=== PATIENT | male | born 1940 | race Caucasian/White ===

== ENCOUNTER 2017-07-13 08:49 | Inpatient (IN) | payer MEDICARE ==
[~2017-07-13] VITALS: Ht 172.7 cm; Wt 83.8 kg
[~2017-07-13 08:49] MED LIST: ASPI-1146 PO; DICY20TA11 PO; DOXA4TAB3 PO; FOLI-74 PO; FOLI0.8T PO; GLIP5TAB11 PO; LISI2.5T2 PO; LORA-997 PO; METF10004 PO; NAPH15DR8 OU; OMEGA; PSYL1CAP2 PO; SERT50TA12 PO; SIMV10TA6 PO; TRIA10.8 NS; [UNRECOGNIZED DRUG - CODE] PO
[2017-07-13 09:48] LABS: BASOPHILS % (AUTO) 0.5 % (0.0-5.0); EOSINOPHILS % (AUTO) 1.7 % (0.0-8.0); HEMATOCRIT 40.2 % (42-54); MEAN CORPUSCULAR HEMOGLOBIN 33.4 pg (27.0-33.0); MEAN CORPUSCULAR VOLUME 95.5 fL (79-99); MONOCYTES % (AUTO) 7.5 % (3.0-13.0); NEUTROPHILS % (AUTO) 67.3 % (40.0-77.0); PLATELET COUNT (AUTO) 132 K/uL (130-400); RED BLOOD CELL COUNT(AUTO) 4.21 MIL/uL (4.50-6.20); RED CELL DISTRIBUTION WIDTH 12.6 % (11.0-15.5); WHITE BLOOD COUNT (AUTO) 5.7 K/uL (4.8-10.8)
[2017-07-13 09:49] LABS: APPEARANCE,URINE Clear (CLEAR); BILIRUBIN,URINE Negative (NEGATIVE); COLOR,URINE Yellow (YELLOW); GLUCOSE, URINE (UA) >=1000 mg/dL (NEGATIVE); KETONES,URINE Negative (NEGATIVE); LEUKOCYTE ESTERASE ,URINE Negative (NEGATIVE); NITRATE,URINE Negative (NEGATIVE); OCCULT BLOOD,URINE Negative (NEGATIVE); PROTEIN,URINE Negative (NEGATIVE)
[2017-07-13 09:56] LABS: CREATININE 1.3 mg/dL (0.5-1.5); POTASSIUM 4.7 mmol/L (3.5-5.1)
[2017-07-13 09:59] LABS: INR 1.26 (0.85-1.15); PARTIAL THROMBOPLASTIN TIME 36.4 SEC (26.3-35.5); PROTHROMBIN TIME 13.2 SEC (9.6-11.6)
[2017-07-13 10:14] LABS: BACTERIA,URINE None Seen /HPF (None Seen); RBC,URINE None Seen /HPF (0-1); SQUAMOUS EPITHELIAL CELL,UR 0-2 /HPF (0-2); WBC,URINE None Seen /HPF (0-1)
[2017-07-13] MEDS ORDERED: DEXTROSE 50%-WATER 50 ML DISP.SYRIN IV PRN (10:15)
[2017-07-13] MEDS ORDERED: GLUCAGON 1MG KIT 1 MG ML IM PRN (10:15)
[2017-07-13] MEDS ORDERED: SODIUM CHLORIDE 0.9% 10 ML VIAL IVP PRN (10:15)
[2017-07-13] MEDS ORDERED: PINDOLOL 5 MG TAB PO SCH (11:00)
[2017-07-13] MEDS ORDERED: RIVA20TA PO (16:47)
[2017-07-13] MEDS ORDERED: PIND10TA2 PO (16:50)
[2017-07-13] MEDS ORDERED: METFORMIN HCL 500 MG TABLET PO SCH (17:00)
[2017-07-13] MEDS ORDERED: GLIPIZIDE 5 MG TABLET PO SCH (17:00)
[2017-07-13] MEDS ORDERED: DIPHENHYDRAMINE HCL 25 MG CAPSULE ONE (21:16)
[2017-07-14] MEDS: VESICARE 5 MG PO SCH (09:00)
[2017-07-14] MEDS: PINDOLOL 5 MG TAB PO SCH ×2 (09:00→21:00)
[2017-07-14] MEDS: SERTRALINE HCL 50 MG TABLET PO SCH (09:00)
[2017-07-14] MEDS: RIVAROXABAN 20 MG TABLET PO SCH (09:00)
[2017-07-14] MEDS ORDERED: SERTRALINE HCL 50 MG TABLET ONE (09:08)
[2017-07-14] MEDS ORDERED: DICYCLOMINE HCL 20 MG TAB ONE (20:22)
[2017-07-14] MEDS ORDERED: ATORVASTATIN CALCIUM 10 MG TABLET PO SCH (20:30)
[2017-07-14] MEDS ORDERED: PSYLLIUM SEED 1 EACH PACKET PO SCH (20:30)
[2017-07-14] MEDS ORDERED: DICYCLOMINE HCL 20 MG TAB PO SCH (20:30)
[2017-07-14] MEDS ORDERED: DIPHENHYDRAMINE HCL 25 MG CAPSULE ONE (20:41)
[2017-07-14] MEDS ORDERED: INSULIN HUMULIN R 100 UNIT/ML 3ML ONE (20:43)
[2017-07-14] MEDS: INSULIN R PO SSI SQ SCH (21:00)
[2017-07-14] MEDS: DOXAZOSIN MESYLATE 2 MG TABLET PO SCH (21:00)
[2017-07-14] MEDS: DIPHENHYDRAMINE HCL 25 MG CAPSULE PO SCH (21:00)
[2017-07-14 23:28] VITALS: BP 147/81
[2017-07-15] VITALS (10 sets, daily range): BP systolic 94–185; BP diastolic 47–84
[2017-07-15] MEDS: INSULIN R PO SSI SQ SCH ×4 (06:14→21:00)
[2017-07-15] MEDS: DIPHENHYDRAMINE HCL 25 MG CAPSULE PO SCH ×2 (09:00→20:31)
[2017-07-15] MEDS: VESICARE 5 MG PO SCH (09:00)
[2017-07-15] MEDS: SERTRALINE HCL 50 MG TABLET PO SCH (09:36)
[2017-07-15] MEDS: DOXAZOSIN MESYLATE 2 MG TABLET PO SCH ×2 (09:36→20:30)
[2017-07-15] MEDS: RIVAROXABAN 20 MG TABLET PO SCH (09:37)
[2017-07-15] MEDS: PINDOLOL 5 MG TAB PO SCH ×2 (09:37→20:31)
[2017-07-16] VITALS (13 sets, daily range): BP systolic 96–157; BP diastolic 54–91
[2017-07-16] MEDS: INSULIN R PO SSI SQ SCH ×4 (06:25→20:38)
[2017-07-16] MEDS: DIPHENHYDRAMINE HCL 25 MG CAPSULE PO SCH ×2 (09:00→20:38)
[2017-07-16] MEDS: VESICARE 5 MG PO SCH (09:00)
[2017-07-16] MEDS: RIVAROXABAN 20 MG TABLET PO SCH (10:59)
[2017-07-16] MEDS: SERTRALINE HCL 50 MG TABLET PO SCH (11:00)
[2017-07-16] MEDS: DOXAZOSIN MESYLATE 2 MG TABLET PO SCH ×2 (11:00→20:35)
[2017-07-16] MEDS ORDERED: PINDOLOL 5 MG TAB ONE (16:21)
[2017-07-16] MEDS: PINDOLOL 5 MG TAB PO SCH (16:26)
[2017-07-17] VITALS (8 sets, daily range): BP systolic 85–154; BP diastolic 53–99
[2017-07-17] MEDS: INSULIN R PO SSI SQ SCH ×3 (05:39→20:26)
[2017-07-17] MEDS: DOXAZOSIN MESYLATE 2 MG TABLET PO SCH ×2 (08:29→20:26)
[2017-07-17] MEDS: RIVAROXABAN 20 MG TABLET PO SCH (08:29)
[2017-07-17] MEDS: SERTRALINE HCL 50 MG TABLET PO SCH (08:29)
[2017-07-17] MEDS: PINDOLOL 5 MG TAB PO SCH ×2 (08:30→20:27)
[2017-07-17] MEDS: VESICARE 5 MG PO SCH (09:00)
[2017-07-17] MEDS: DIPHENHYDRAMINE HCL 25 MG CAPSULE PO SCH ×2 (09:00→20:30)
[2017-07-18] VITALS (10 sets, daily range): BP systolic 99–176; BP diastolic 60–91
[2017-07-18] MEDS: INSULIN R PO SSI SQ SCH (06:04)
[2017-07-18] MEDS: VESICARE 5 MG PO SCH (09:00)
[2017-07-18] MEDS: DIPHENHYDRAMINE HCL 25 MG CAPSULE PO SCH (09:00)
[2017-07-18] MEDS: RIVAROXABAN 20 MG TABLET PO SCH (09:16)
[2017-07-18] MEDS: SERTRALINE HCL 50 MG TABLET PO SCH (09:16)
[2017-07-18] MEDS: DOXAZOSIN MESYLATE 2 MG TABLET PO SCH (09:16)
[2017-07-18] MEDS: PINDOLOL 5 MG TAB PO SCH ×2 (09:17→20:19)
== END 2017-07-18 20:43 | disposition home or self-care (01) | DRG 310 ==
LOC: EDH 08:49 → EDHIP 08:50 → 2AH 07-14 22:18
PROVIDERS: ADMIT Internal Medicine Nephrology; ATTEND Internal Medicine Nephrology
PROC: 5A09357 Assistance with Respiratory Ventilation, Less than 24 Consecutive Hours, Continuous Positive Airway Pressure (ICD-10-PCS; principal; 2017-07-16)
DX: I48.0 Paroxysmal atrial fibrillation (principal); E11.9 Type 2 diabetes mellitus without complications; D46.9 Myelodysplastic syndrome, unspecified; K21.9 Gastro-esophageal reflux disease without esophagitis; E78.5 Hyperlipidemia, unspecified; I95.1 Orthostatic hypotension; R00.1 Bradycardia, unspecified; G47.33 Obstructive sleep apnea (adult) (pediatric); I10 Essential (primary) hypertension; K58.9 Irritable bowel syndrome, unspecified; Z79.01 Long term (current) use of anticoagulants; Z86.73 Personal history of transient ischemic attack (TIA), and cerebral infarction without residual deficits; Z85.46 Personal history of malignant neoplasm of prostate; Z82.49 Family history of ischemic heart disease and other diseases of the circulatory system; Z82.3 Family history of stroke; Z83.3 Family history of diabetes mellitus
CPT/HCPCS: 36415; 71046; 80048; 81001; 82948; 85025; 85610; 85730; 94660; J1815; Q0163

== ENCOUNTER → 2018-11-08 | Outpatient (CLI) | payer MEDICARE ==
[~2018-11-08] VITALS: Ht 175.3 cm; Wt 81.2 kg
[~2018-11-08] MED LIST changes: -ASPI-1146 PO; -LISI2.5T2 PO; -LORA-997 PO; +METF-446 PO; -METF10004 PO; -NAPH15DR8 OU; -OMEGA; +REGADENOSON 0.4 MG/5 ML PF SYG IVP SCH; +RIVA20TA PO; -TRIA10.8 NS
== END | disposition home or self-care (01) ==
LOC: SHCH 08:25
PROVIDERS: ATTEND Internal Medicine Cardiovascular Disease
DX: I95.1 Orthostatic hypotension (principal); R07.89 Other chest pain
CPT/HCPCS: 78452; 93017; 96374; A9500 ×2; J2785

== ENCOUNTER 2021-06-17 01:39 | Emergency (ER) | payer MEDICARE ==
[~2021-06-17] VITALS: Ht 175.3 cm; Wt 72.6 kg
[~2021-06-17 01:39] MED LIST changes: +CEPH500B PO; -DICY20TA11 PO; +DICY20TA3 PO; -FOLI0.8T PO; +FOLI0.8T3 PO; -REGADENOSON 0.4 MG/5 ML PF SYG IVP SCH; +SERT-439 PO; -SERT50TA12 PO; -SIMV10TA6 PO; +SIMV10TA97 PO; +TRAM50TA4 PO
[2021-06-17 01:41] VITALS: BP 159/63
[2021-06-18] MEDS ORDERED: CEPH500B PO (18:58)
== END 2021-06-17 05:15 | disposition left against medical advice (07) ==
LOC: EDH 01:39
DX: R31.9 Hematuria, unspecified (principal); Z53.21 Procedure and treatment not carried out due to patient leaving prior to being seen by health care provider

== ENCOUNTER 2021-06-18 16:11 | Emergency (ER) | payer MEDICARE ==
[~2021-06-18] VITALS: Ht 175.3 cm; Wt 72.6 kg
[2021-06-18 17:17] LABS: APPEARANCE,URINE TURBID (CLEAR); COLOR,URINE RED (YELLOW)
[2021-06-18 17:18] LABS: LEUKOCYTE ESTERASE ,URINE SMALL (NEGATIVE); NITRATE,URINE POSITIVE (NEGATIVE)
[2021-06-18 17:19] LABS: PROTEIN,URINE >=300 mg/dL (NEGATIVE); UROBILINOGEN,URINE 0.2 mg/dL (0.2-1.0)
[2021-06-18 17:20] LABS: GLUCOSE, URINE (UA) NEGATIVE (NEGATIVE); KETONES,URINE 15 mg/dL (NEGATIVE); OCCULT BLOOD,URINE LARGE (NEGATIVE)
[2021-06-18 17:21] LABS: BILIRUBIN,URINE SMALL (NEGATIVE)
[2021-06-18 17:44] LABS: RBC,URINE TNTC /HPF (0-1)
[2021-06-18 17:46] LABS: BACTERIA,URINE Rare /HPF (None Seen); SQUAMOUS EPITHELIAL CELL,UR None Seen /HPF (0-2)
[2021-06-18 18:22] LABS: BASOPHILS % (AUTO) 0.6 % (0.0-5.0); EOSINOPHILS % (AUTO) 2.6 % (0.0-8.0); HEMATOCRIT 38.4 % (42-54); LYMPHOCYTES % (AUTO) 21.8 % (21.0-51.0); MEAN CORPUSCULAR HEMOGLOBIN 32.3 pg (27.0-33.0); MEAN CORPUSCULAR HGB CONC 33.1 g/dL (32.0-36.0); MEAN CORPUSCULAR VOLUME 97.7 fL (79-99); MONOCYTES % (AUTO) 10.3 % (3.0-13.0); NEUTROPHILS % (AUTO) 64.3 % (40.0-77.0); PLATELET COUNT (AUTO) 133 K/uL (130-400); RED BLOOD CELL COUNT(AUTO) 3.93 MIL/uL (4.50-6.20); RED CELL DISTRIBUTION WIDTH 12.5 % (11.0-15.5); WHITE BLOOD COUNT (AUTO) 5.1 K/uL (4.8-10.8)
[2021-06-18 18:30] LABS: CREATININE 1.1 mg/dL (0.5-1.5); POTASSIUM 4.4 mmol/L (3.5-5.1)
[2021-06-18] MEDS ORDERED: 0.9% NACL 500ML IV.SOLN 500 ML IV SCH (18:30)
[2021-06-18 18:39] LABS: ALBUMIN 3.8 g/dL (3.5-5.0); BILIRUBIN,TOTAL 0.4 mg/dL (0.2-1.0); TOTAL PROTEIN, SERUM 6.6 g/dL (6.0-8.3)
[2021-06-18] MEDS ORDERED: CEPH500B PO (18:58)
[2021-06-18] MEDS ORDERED: CEFTRIAXONE 1G VIAL IV SCH (19:00)
[2021-06-18 19:24] VITALS: BP 117/63
== END 2021-06-18 19:37 | disposition home or self-care (01) ==
LOC: EDH 16:11
DX: N30.91 Cystitis, unspecified with hematuria (principal); E11.9 Type 2 diabetes mellitus without complications; I10 Essential (primary) hypertension; Z79.84 Long term (current) use of oral hypoglycemic drugs; Z85.46 Personal history of malignant neoplasm of prostate; Z90.49 Acquired absence of other specified parts of digestive tract
CPT/HCPCS: 36415; 80053; 81001; 85025; 87088; 96374; 99284; J0696; J7040

== ENCOUNTER 2021-06-27 11:10 | Emergency (ER) | payer MEDICARE ==
[~2021-06-27] VITALS: Ht 175.3 cm; Wt 72.6 kg
[2021-06-27 11:35] LABS: APPEARANCE,URINE TURBID (CLEAR); BILIRUBIN,URINE LARGE (NEGATIVE); COLOR,URINE RED (YELLOW); GLUCOSE, URINE (UA) 100 mg/dL (NEGATIVE); KETONES,URINE 15 mg/dL (NEGATIVE); LEUKOCYTE ESTERASE ,URINE MODERATE (NEGATIVE); NITRATE,URINE POSITIVE (NEGATIVE); OCCULT BLOOD,URINE LARGE (NEGATIVE); PH,URINE 6.5 (5.0-8.0); PROTEIN,URINE >=300 mg/dL (NEGATIVE)
[2021-06-27 11:36] VITALS: BP 139/62
[2021-06-27 11:50] LABS: BASOPHILS % (AUTO) 0.6 % (0.0-5.0); EOSINOPHILS % (AUTO) 2.7 % (0.0-8.0); HEMATOCRIT 35.6 % (42-54); LYMPHOCYTES % (AUTO) 24.4 % (21.0-51.0); MEAN CORPUSCULAR HEMOGLOBIN 32.5 pg (27.0-33.0); MEAN CORPUSCULAR HGB CONC 33.7 g/dL (32.0-36.0); MEAN CORPUSCULAR VOLUME 96.5 fL (79-99); MONOCYTES % (AUTO) 10.7 % (3.0-13.0); NEUTROPHILS % (AUTO) 61.4 % (40.0-77.0); PLATELET COUNT (AUTO) 135 K/uL (130-400); RED BLOOD CELL COUNT(AUTO) 3.69 MIL/uL (4.50-6.20); RED CELL DISTRIBUTION WIDTH 12.9 % (11.0-15.5); WHITE BLOOD COUNT (AUTO) 4.9 K/uL (4.8-10.8)
[2021-06-27 11:57] LABS: POTASSIUM 4.7 mmol/L (3.5-5.1)
[2021-06-27 12:02] LABS: ALBUMIN 3.8 g/dL (3.5-5.0); BILIRUBIN,TOTAL 0.4 mg/dL (0.2-1.0); TOTAL PROTEIN, SERUM 6.6 g/dL (6.0-8.3)
[2021-06-27 12:19] LABS: RBC,URINE TNTC /HPF (0-1)
[2021-06-27 12:20] LABS: BACTERIA,URINE Moderate /HPF (None Seen); SQUAMOUS EPITHELIAL CELL,UR 0-2 /HPF (0-2)
[2021-06-27] MEDS ORDERED: IOHEXOL-350 50ML VIAL IV ONE (12:43)
[2021-06-27] MEDS ORDERED: CEPH500B PO (15:06)
== END 2021-06-27 15:25 | disposition home or self-care (01) ==
LOC: EDH 11:10
DX: N30.01 Acute cystitis with hematuria (principal); N32.89 Other specified disorders of bladder; E11.9 Type 2 diabetes mellitus without complications; I10 Essential (primary) hypertension; J44.9 Chronic obstructive pulmonary disease, unspecified; Z79.84 Long term (current) use of oral hypoglycemic drugs; Z85.46 Personal history of malignant neoplasm of prostate; Z90.49 Acquired absence of other specified parts of digestive tract
CPT/HCPCS: 36415; 74176; 74177; 80053; 81001; 85025; 87088; 99285; Q9967

== ENCOUNTER → 2021-09-03 | Outpatient (CLI) | payer MEDICARE ==
[2021-09-03 12:32] LABS: BASOPHILS % (AUTO) 0.5 % (0.0-5.0); EOSINOPHILS % (AUTO) 2.2 % (0.0-8.0); HEMATOCRIT 41.1 % (42-54); LYMPHOCYTES % (AUTO) 18.7 % (21.0-51.0); MEAN CORPUSCULAR HEMOGLOBIN 32.5 pg (27.0-33.0); MEAN CORPUSCULAR HGB CONC 33.1 g/dL (32.0-36.0); MEAN CORPUSCULAR VOLUME 98.1 fL (79-99); MONOCYTES % (AUTO) 8.5 % (3.0-13.0); NEUTROPHILS % (AUTO) 69.9 % (40.0-77.0); PLATELET COUNT (AUTO) 128 K/uL (130-400); RED BLOOD CELL COUNT(AUTO) 4.19 MIL/uL (4.50-6.20); RED CELL DISTRIBUTION WIDTH 12.9 % (11.0-15.5); WHITE BLOOD COUNT (AUTO) 4.1 K/uL (4.8-10.8)
== END | disposition home or self-care (01) ==
LOC: LAB 08:08
PROVIDERS: ATTEND Internal Medicine Cardiovascular Disease
DX: I48.0 Paroxysmal atrial fibrillation (principal)
CPT/HCPCS: 36415; 85025

== ENCOUNTER → 2022-01-15 | Outpatient (CLI) | payer MEDICARE ==
[2022-01-15 12:32] LABS: BASOPHILS % (AUTO) 0.5 % (0.0-5.0); EOSINOPHILS % (AUTO) 2.1 % (0.0-8.0); HEMATOCRIT 42.5 % (42-54); LYMPHOCYTES % (AUTO) 18.4 % (21.0-51.0); MEAN CORPUSCULAR HEMOGLOBIN 32.2 pg (27.0-33.0); MEAN CORPUSCULAR HGB CONC 33.4 g/dL (32.0-36.0); MEAN CORPUSCULAR VOLUME 96.4 fL (79-99); MONOCYTES % (AUTO) 8.4 % (3.0-13.0); NEUTROPHILS % (AUTO) 70.6 % (40.0-77.0); PLATELET COUNT (AUTO) 126 K/uL (130-400); RED BLOOD CELL COUNT(AUTO) 4.41 MIL/uL (4.50-6.20); WHITE BLOOD COUNT (AUTO) 4.3 K/uL (4.8-10.8)
[2022-01-15 12:46] LABS: CREATININE 1.1 mg/dL (0.5-1.5); POTASSIUM 4.6 mmol/L (3.5-5.1); TOTAL PROTEIN, SERUM 6.8 g/dL (6.0-8.3)
== END | disposition home or self-care (01) ==
LOC: LAB 08:12
PROVIDERS: ATTEND Internal Medicine Cardiovascular Disease
DX: I48.0 Paroxysmal atrial fibrillation (principal); I10 Essential (primary) hypertension
CPT/HCPCS: 36415; 80053; 80061; 85025

== ENCOUNTER → 2022-06-02 | Outpatient (CLI) | payer MEDICARE ==
[2022-06-02 12:41] LABS: BASOPHILS % (AUTO) 0.5 % (0.0-5.0); EOSINOPHILS % (AUTO) 3.6 % (0.0-8.0); HEMATOCRIT 41.8 % (42-54); LYMPHOCYTES % (AUTO) 20.2 % (21.0-51.0); MEAN CORPUSCULAR HEMOGLOBIN 32.4 pg (27.0-33.0); MEAN CORPUSCULAR VOLUME 98.1 fL (79-99); MONOCYTES % (AUTO) 8.3 % (3.0-13.0); NEUTROPHILS % (AUTO) 67.4 % (40.0-77.0); PLATELET COUNT (AUTO) 125 K/uL (130-400); RED BLOOD CELL COUNT(AUTO) 4.26 MIL/uL (4.50-6.20); WHITE BLOOD COUNT (AUTO) 4.2 K/uL (4.8-10.8)
[2022-06-02 13:02] LABS: CREATININE 1.1 mg/dL (0.5-1.5); POTASSIUM 4.6 mmol/L (3.5-5.1); TOTAL PROTEIN, SERUM 6.9 g/dL (6.0-8.3)
== END | disposition home or self-care (01) ==
LOC: LAB 08:37
PROVIDERS: ATTEND Internal Medicine Cardiovascular Disease
DX: I48.0 Paroxysmal atrial fibrillation (principal); E78.5 Hyperlipidemia, unspecified; D68.59 Other primary thrombophilia; I95.1 Orthostatic hypotension
CPT/HCPCS: 36415; 80053; 80061; 85025

== ENCOUNTER → 2022-12-01 | Outpatient (CLI) | payer MEDICARE ==
[2022-12-01 12:13] LABS: BASOPHILS # (AUTO) 0.02 K/uL (0.00-0.20); BASOPHILS % (AUTO) 0.4 % (0.0-5.0); EOSINOPHILS # (AUTO) 0.05 K/uL (0.00-0.70); EOSINOPHILS % (AUTO) 0.9 % (0.0-8.0); HEMATOCRIT 41.2 % (42-54); IMMATURE GRANULOCYTE ABSOLUTE 0.01 K/uL (0-1); LYMPHOCYTES # (AUTO) 0.7 K/uL (1.0-4.8); LYMPHOCYTES % (AUTO) 13.9 % (21.0-51.0); MEAN CORPUSCULAR HEMOGLOBIN 32.2 pg (27.0-33.0); MEAN CORPUSCULAR HGB CONC 32.8 g/dL (32.0-36.0); MEAN CORPUSCULAR VOLUME 98.3 fL (79-99); MONOCYTES # (AUTO) 0.3 K/uL (0.1-1.0); NEUTROPHILS # (AUTO) 4.2 K/uL (1.8-7.7); NEUTROPHILS % (AUTO) 78.6 % (40.0-77.0); PLATELET COUNT (AUTO) 123 K/uL (130-400); RED BLOOD CELL COUNT(AUTO) 4.19 MIL/uL (4.50-6.20); RED CELL DISTRIBUTION WIDTH 12.7 % (11.0-15.5); WHITE BLOOD COUNT (AUTO) 5.3 K/uL (4.8-10.8)
[2022-12-01 12:44] LABS: ALBUMIN 3.9 g/dL (3.5-5.0); BILIRUBIN,TOTAL 0.6 mg/dL (0.2-1.0); CREATININE 1.2 mg/dL (0.5-1.5); POTASSIUM 4.7 mmol/L (3.5-5.1); TOTAL PROTEIN, SERUM 6.7 g/dL (6.0-8.3)
== END | disposition home or self-care (01) ==
LOC: LAB 08:19
PROVIDERS: ATTEND Internal Medicine Cardiovascular Disease
DX: I48.0 Paroxysmal atrial fibrillation (principal); D68.51 Activated protein C resistance; I10 Essential (primary) hypertension; I95.1 Orthostatic hypotension
CPT/HCPCS: 36415; 80053; 80061; 85025

== ENCOUNTER → 2023-03-09 | Outpatient (CLI) | payer MEDICARE ==
[~2023-03-09] MED LIST changes: -GLIP5TAB11 PO; +GLIP5TAB15 PO
== END | disposition home or self-care (01) ==
LOC: RAH 13:02
PROVIDERS: ATTEND Urology
DX: N28.1 Cyst of kidney, acquired (principal); N20.0 Calculus of kidney
CPT/HCPCS: 74018; 74176; 76100

== ENCOUNTER → 2023-06-08 | Outpatient (CLI) | payer MEDICARE ==
[2023-06-08 12:10] LABS: BASOPHILS # (AUTO) 0.03 K/uL (0.00-0.20); BASOPHILS % (AUTO) 0.8 % (0.0-5.0); EOSINOPHILS # (AUTO) 0.09 K/uL (0.00-0.70); EOSINOPHILS % (AUTO) 2.3 % (0.0-8.0); HEMATOCRIT 42.5 % (42-54); LYMPHOCYTES # (AUTO) 0.9 K/uL (1.0-4.8); MEAN CORPUSCULAR HEMOGLOBIN 32.6 pg (27.0-33.0); MEAN CORPUSCULAR HGB CONC 32.7 g/dL (32.0-36.0); MEAN CORPUSCULAR VOLUME 99.8 fL (79-99); MONOCYTES # (AUTO) 0.3 K/uL (0.1-1.0); MONOCYTES % (AUTO) 7.2 % (3.0-13.0); NEUTROPHILS # (AUTO) 2.6 K/uL (1.8-7.7); NEUTROPHILS % (AUTO) 65.7 % (40.0-77.0); PLATELET COUNT (AUTO) 133 K/uL (130-400); RED BLOOD CELL COUNT(AUTO) 4.26 MIL/uL (4.50-6.20); RED CELL DISTRIBUTION WIDTH 13.2 % (11.0-15.5); WHITE BLOOD COUNT (AUTO) 3.9 K/uL (4.8-10.8)
[2023-06-08 12:38] LABS: ALBUMIN 3.9 g/dL (3.5-5.0); BILIRUBIN,TOTAL 0.4 mg/dL (0.2-1.0); CREATININE 1.1 mg/dL (0.5-1.5); POTASSIUM 4.7 mmol/L (3.5-5.1); TOTAL PROTEIN, SERUM 6.6 g/dL (6.0-8.3)
== END | disposition home or self-care (01) ==
LOC: LAB 08:21
PROVIDERS: ATTEND Internal Medicine Cardiovascular Disease
DX: N20.0 Calculus of kidney (principal); I95.1 Orthostatic hypotension; I48.0 Paroxysmal atrial fibrillation; D68.59 Other primary thrombophilia; M47.815 Spondylosis without myelopathy or radiculopathy, thoracolumbar region; I10 Essential (primary) hypertension
CPT/HCPCS: 36415; 74018; 80053; 80061; 85025

== ENCOUNTER 2023-12-23 09:10 | Day surgery (SDC) | payer MEDICARE ==
[~2023-12-23] VITALS: Ht 175.3 cm; Wt 69.9 kg
[2023-12-23] VITALS (13 sets, daily range): BP systolic 126–169; BP diastolic 61–77; PULSE 46–52; RESP 14–18; TEMP 96.6–97.9
[~2023-12-23 09:10] MED LIST changes: -CEPH500B PO; -DICY20TA3 PO; +DUTA0.5C37 PO; -FOLI-74 PO; -FOLI0.8T3 PO; -GLIP5TAB15 PO; +METF-444 PO; -METF-446 PO; +PINDOLOL PO; +PSYL0.4C2 PO; -PSYL1CAP2 PO; -TRAM50TA4 PO; -[UNRECOGNIZED DRUG - CODE] PO
[2023-12-23] MEDS: 0.9%NACL 1000ML 1,000 ML IV ONE (10:30)
[2023-12-23] MEDS ORDERED: proPOFol 10 MG/ML 20ML VIAL IV ONE (11:19)
== END 2023-12-23 13:05 | disposition home or self-care (01) ==
LOC: DAH 09:10 → ENDO 09:10
PROVIDERS: ATTEND Internal Medicine Gastroenterology
DX: R93.2 Abnormal findings on diagnostic imaging of liver and biliary tract (principal); K86.2 Cyst of pancreas; R93.429 Abnormal radiologic findings on diagnostic imaging of unspecified kidney; I10 Essential (primary) hypertension; E11.9 Type 2 diabetes mellitus without complications; Z86.73 Personal history of transient ischemic attack (TIA), and cerebral infarction without residual deficits; E78.5 Hyperlipidemia, unspecified; F41.9 Anxiety disorder, unspecified; F32.A Depression, unspecified; Z90.89 Acquired absence of other organs; Z85.46 Personal history of malignant neoplasm of prostate; Z79.84 Long term (current) use of oral hypoglycemic drugs; Z79.899 Other long term (current) drug therapy
CPT/HCPCS: 43237; 82948 ×2; J7030; J2704; A4620; A4215 ×2; A4223; A4222; A4221; A4663; A4606; J3490

== ENCOUNTER → 2024-05-04 | Outpatient (CLI) | payer MEDICARE ==
[2024-05-04 11:19] LABS: BASOPHILS # (AUTO) 0.01 K/uL (0.00-0.20); BASOPHILS % (AUTO) 0.2 % (0.0-5.0); EOSINOPHILS # (AUTO) 0.04 K/uL (0.00-0.70); EOSINOPHILS % (AUTO) 0.9 % (0.0-8.0); HEMATOCRIT 40.6 % (42-54); IMMATURE GRANULOCYTE ABSOLUTE 0.01 K/uL (0-1); LYMPHOCYTES # (AUTO) 0.4 K/uL (1.0-4.8); LYMPHOCYTES % (AUTO) 9.8 % (21.0-51.0); MEAN CORPUSCULAR HEMOGLOBIN 32.8 pg (27.0-33.0); MEAN CORPUSCULAR HGB CONC 33.3 g/dL (32.0-36.0); MEAN CORPUSCULAR VOLUME 98.8 fL (79-99); MONOCYTES # (AUTO) 0.4 K/uL (0.1-1.0); MONOCYTES % (AUTO) 8.4 % (3.0-13.0); NEUTROPHILS # (AUTO) 3.5 K/uL (1.8-7.7); NEUTROPHILS % (AUTO) 80.5 % (40.0-77.0); PLATELET COUNT (AUTO) 126 K/uL (130-400); RED BLOOD CELL COUNT(AUTO) 4.11 MIL/uL (4.50-6.20); RED CELL DISTRIBUTION WIDTH 12.9 % (11.0-15.5); WHITE BLOOD COUNT (AUTO) 4.4 K/uL (4.8-10.8)
[2024-05-04 11:25] LABS: CREATININE 1.1 mg/dL (0.5-1.3); POTASSIUM 4.6 mmol/L (3.5-5.1)
== END | disposition home or self-care (01) ==
LOC: LAB 10:05
PROVIDERS: ATTEND Urology
DX: N28.9 Disorder of kidney and ureter, unspecified (principal)
CPT/HCPCS: 36415; 80048; 85025

== ENCOUNTER → 2024-05-11 | Outpatient (CLI) | payer MEDICARE ==
[~2024-05-11] MED LIST changes: +IOHEXOL-350 75 ML VIAL IV ONE
--- NOTE | 2024-05-11 13:13 | HMCIMG ---
CT ABDOMEN/PELVIS W/WO CONTRAS REASON: DISORDER OF KIDNEY AND URETER COMPARISON: 03/09/2023. TECHNIQUE: Images are obtained from lung bases to symphysis pubis before and after IV contrast, 75 cc Omnipaque [id number]. FINDINGS: Lung bases are clear. There are no focal liver lesions. The liver does not appear enlarged.. Pancreas appears normal without evidence of mass. Spleen also appears Unremarkable. The gallbladder appears normal as well. There are extensive bilateral renal cysts, more pronounced on the left than the right. There is an 8.3 cm nonobstructing stone lower pole calyx left kidney. There is no mass or hydronephrosis in either kidney. There is normal-appearing cortical thickness. Urinary bladder appears mildly thick-walled. Prostate is enlarged at 5.0 x 3.5 x 4.7 cm. Bowel loops appear unremarkable. The appendix was not separately identified. There is no evidence of free fluid or intraperitoneal air. There are no focal fluid collections. Aorta and retroperitoneum appear normal as do pelvic soft tissue structures. Multiple phleboliths are present in the pelvis. The anterior abdominal wall is intact. Osseous structures appear unremarkable. IMPRESSION: 1. Extensive bilateral renal cysts, left more than right, there is also an 8 mm nonobstructing stone lower pole calyx of the left kidney. 2. Otherwise unremarkable exam. CT was performed with one or more following dose reduction techniques: automated exposure control, adjustment of the mA and kv according to patient's size, or use of a iterative reconstruction technique.
== END | disposition home or self-care (01) ==
LOC: RAH 10:45
PROVIDERS: ATTEND Urology
DX: N28.1 Cyst of kidney, acquired (principal); N40.0 Benign prostatic hyperplasia without lower urinary tract symptoms; N28.9 Disorder of kidney and ureter, unspecified; K86.2 Cyst of pancreas; I87.8 Other specified disorders of veins
CPT/HCPCS: 74178; Q9967